=== PATIENT | female | born 1985 | race Caucasian/White ===

== ENCOUNTER 2017-07-06 14:12 | Inpatient (IN) | payer MEDICAID, OTHER ==
[~2017-07-06] VITALS: Ht 160 cm; Wt 74.8 kg
[2017-07-06] MEDS ORDERED: ONDANSETRON HCL 4MG/2ML VIAL IV ONE ×2 (14:30→17:30)
[2017-07-06] MEDS ORDERED: ONDANSETRON HCL 4MG/2ML VIAL ONE (14:33)
[2017-07-06] MEDS ORDERED: SODIUM CHLORIDE 0.9% 1,000 ML IV ONE (15:10)
[2017-07-06 16:26] LABS: HEMATOCRIT. 34.4 % (36.0-48.0); HEMOGLOBIN. 11.8 g/dL (12.0-16.0); MEAN CORPUSCULAR HEMOGLOBIN 30.2 pg (28.0-32.0); MEAN CORPUSCULAR VOLUME 87.8 fL (81.0-99.0); MEAN PLATELET VOLUME 7.8 fl (7.4-10.4); PLATELET 234 x1000/uL (130-400); RED BLOOD CELL COUNT 3.92 mill/uL (4.2-5.4)
[2017-07-06 16:34] LABS: CHLORIDE 108 mEq/L (98-107)
[2017-07-06 16:36] LABS: HCG SCREEN NEGATIVE
[2017-07-06 16:40] LABS: CARBON DIOXIDE 22 mEq/L (21-32)
[2017-07-06 17:21] LABS: CLARITY URINE CLEAR (CLEAR); COLOR URINE YELLOW (YELLOW); GLUCOSE URINE NEGATIVE (NEGATIVE); KETONES URINE 2+ (NEGATIVE); LEUKOCYTE ESTERASE URINE TRACE (NEGATIVE); NITRITE URINE NEGATIVE (NEGATIVE); OCCULT BLOOD URINE NEGATIVE (NEGATIVE); PH URINE 7.5 (4.5-8.0); PROTEIN URINE NEGATIVE (NEGATIVE); SPECIFIC GRAVITY URINE 1.014 (1.005-1.030); UROBILINOGEN URINE 0.2 E.U./dL (0.2-1.0)
[2017-07-06] MEDS ORDERED: MORPHINE SULFATE 2 MG/ML CPJ (NOT FOR IM USE) IV ONE (17:30)
[2017-07-06 17:32] LABS: PLATELET ESTIMATE NORMAL
[2017-07-06] MEDS ORDERED: MORPHINE SULFATE 4 MG/ML CPJ (NOT FOR IM USE) IV ONE (22:00)
[2017-07-07] VITALS (32 sets, daily range): BP systolic 63–118; BP diastolic 37–73
[2017-07-07] MEDS ORDERED: ACETAMINOPHEN 325MG TABLET PO PRN (01:30)
[2017-07-07] MEDS ORDERED: ONDANSETRON HCL 4MG/2ML VIAL IV PRN (01:30)
[2017-07-07] MEDS ORDERED: DIPHENHYDRAMINE 50MG/ML VIAL IV PRN (01:30)
[2017-07-07] MEDS ORDERED: DEXT 5%/0.45% NACL KCL 20MEQ/L 1,000 ML IV SCH (02:00)
[2017-07-07] MEDS: LEVETIRACETAM 500 MG in SODIUM CHLORIDE 0.9% 100 ML IV SCH ×2 (02:10→13:03)
[2017-07-07] MEDS ORDERED: DEXAMETHASONE 4MG TABLET PO SCH (06:00)
[2017-07-07] MEDS: DEXAMETHASONE 4MG TABLET PO SCH ×2 (06:16→12:32)
[2017-07-07] MEDS ORDERED: PANTOPRAZOLE 40MG DR TABLET PO SCH (06:30)
[2017-07-07] MEDS ORDERED: PANTOPRAZOLE SODIUM 40 MG/VIAL IV SCH (09:00)
== END 2017-07-07 16:00 | disposition home or self-care (01) | DRG 53 ==
LOC: ER 14:16 → MICUSO 17:30 → CANRESERV 19:34 → ENRESERV 19:34 → EDBEDREQSVC 22:20 → ENRESERV 22:40 → CANRESERV 22:40
PROVIDERS: ADMIT Internal Medicine; ATTEND Internal Medicine
DX: G40.909 Epilepsy, unspecified, not intractable, without status epilepticus (principal); G93.6 Cerebral edema; R65.11 Systemic inflammatory response syndrome (SIRS) of non-infectious origin with acute organ dysfunction; G93.89 Other specified disorders of brain; E87.6 Hypokalemia; G91.9 Hydrocephalus, unspecified; Z88.0 Allergy status to penicillin; Z98.2 Presence of cerebrospinal fluid drainage device; Z86.011 Personal history of benign neoplasm of the brain
CPT/HCPCS: 36415; 70450; 71010; 80053; 81001; 83735; 84484; 84703; 85025; 93005; 96361; 96374; 96375; 96376; 99285; J1953; J2270; J2405; J7030; J7050; J8540

== ENCOUNTER 2018-02-02 10:53 | Emergency (ER) | payer MEDICAID ==
[~2018-02-02] VITALS: Ht 165.1 cm; Wt 55.0 kg
[2018-02-02] MEDS ORDERED: KEPP500 PO (10:59)
[2018-02-02] MEDS ORDERED: SODIUM CHLORIDE 0.9% 500 ML IV ONE (11:11)
[2018-02-02] MEDS ORDERED: ONDANSETRON HCL 4MG/2ML VIAL IV STA (11:11)
[2018-02-02] MEDS ORDERED: FENTANYL CITRATE/PF 50MCG/ML 2ML VIAL IV ONE (11:15)
[2018-02-02] MEDS ORDERED: LEVETIRACETAM 500MG PREMIX 100 ML IV ONE (11:15)
[2018-02-02] MEDS ORDERED: DEXAMETHASONE 10 MG/ML VIAL IV ONE (12:30)
[2018-02-02 13:05] LABS: HEMATOCRIT. 40.7 % (36.0-48.0); HEMOGLOBIN. 14.2 g/dL (12.0-16.0); MEAN CORPUSCULAR HEMOGLOBIN 30.2 pg (28.0-32.0); MEAN CORPUSCULAR VOLUME 86.6 fL (81.0-99.0); MEAN PLATELET VOLUME 7.1 fl (7.4-10.4); PLATELET 229 x1000/uL (130-400); RED BLOOD CELL COUNT 4.71 mill/uL (4.2-5.4); RED CELL DISTRIBUTION WIDTH 13.7 % (11.6-14.6)
[2018-02-02 13:13] LABS: PROTHROMBIN TIME 10.7 sec (9.4-11.6)
[2018-02-02 13:15] LABS: AMMONIA 34 uMol/L (<32)
[2018-02-02 13:16] LABS: CHLORIDE 98 mEq/L (98-107)
[2018-02-02 13:21] LABS: CREATINE KINASE 73 IU/L (26-192)
[2018-02-02 13:25] LABS: PLATELET ESTIMATE NORMAL
[2018-02-02 13:33] LABS: CARBAMAZEPINE < 0.5 ug/mL (4-12); PHENOBARBITAL < 2.1 ug/mL (15.0-40.0)
[2018-02-02 13:36] LABS: HCG SCREEN NEGATIVE
[2018-02-02 14:03] LABS: PARTIAL THROMBOPLASTIN TIME < 20.0 sec (23.4-31.0)
[2018-02-02] MEDS ORDERED: PHENYTOIN SODIUM 1,000 MG in SODIUM CHLORIDE 0.9% 100 ML IV ONE (14:15)
[2018-02-02] MEDS ORDERED: GADOBENATE DIMEGLUMINE 529 MG/ML 10ML IV ONE (14:53)
[2018-02-02] MEDS ORDERED: ACETAMINOPHEN 325MG TABLET PO STA (18:09)
[2018-02-02] MEDS ORDERED: SODIUM CHLORIDE 0.9% 1,000 ML IV ONE (18:14)
[2018-02-03] MEDS ORDERED: LEVETIRACETAM 500MG PREMIX 100 ML IV ONE (01:00)
[2018-02-03 01:50] VITALS: BP 115/61
== END 2018-02-03 02:12 | disposition short-term general hospital (02) ==
LOC: ER 10:59 → CANBEDREQ 21:30 → ER 02-03 02:12
DX: D49.6 Neoplasm of unspecified behavior of brain (principal); R40.4 Transient alteration of awareness; G40.909 Epilepsy, unspecified, not intractable, without status epilepticus; Z88.0 Allergy status to penicillin; Z98.2 Presence of cerebrospinal fluid drainage device
CPT/HCPCS: 36415; 70450; 70553; 80048; 80156; 80165; 80184; 80185; 81025; 82140; 82550; 82962; 84703; 85025; 85610; 85730; 96365; 96366; 96368; 96375; 99291; A9577; J1100; J1165; J1953; J2405; J3010; J7040; Z7610; J7050